=== PATIENT | male | born 1945 | race Two or more races ===

== ENCOUNTER → 2019-05-15 | Outpatient (CLI) | payer MEDICARE ==
--- NOTE | 2019-05-15 15:57 | RAD ---
Left lower extremity venous duplex study 05/15/2019 Clinical History: Lower extremity pain Technique: Using a combination of real time ultrasound imaging and color-flow and pulse Doppler imaging techniques, including spectral analysis, graded compression and augmentation, duplex evaluation of the deep venous system of the left lower extremity was performed. Multiple images were obtained. Findings: Partially occlusive thrombus is seen in the left superficial femoral vein. Occlusive thrombus is seen in the left popliteal vein. Remaining deep veins of left lower extremity appear grossly patent. Impression: Exam positive for deep venous thrombosis involving the left superficial femoral and popliteal veins as described. Findings called to the ordering physician at time of exam by the cytotechnologist/histotechnologist Electronically signed by: Dileep Gill MD (05/15/2019 3:54 PM) [id number]
== END | disposition home or self-care (01) ==
LOC: US 14:39
PROVIDERS: ATTEND Internal Medicine
DX: I82.412 Acute embolism and thrombosis of left femoral vein (principal); I82.432 Acute embolism and thrombosis of left popliteal vein
CPT/HCPCS: 93971

== ENCOUNTER → 2019-11-17 | Outpatient (CLI) | payer MEDICARE ==
--- NOTE | 2019-11-17 15:10 | RAD ---
EXAM: Left lower extremity venous Doppler. HISTORY: Left lower extremity DVT follow-up. COMPARISON: Left lower extremity venous duplex ultrasound of May 25, 2019. FINDINGS: Grayscale and Doppler analysis of the left lower extremity deep venous system was performed with graded compression and augmentation. The common femoral, greater saphenous, superficial femoral, popliteal and calf veins were assessed. Occlusive thrombus in the left popliteal vein persists as well as partially occlusive thrombus in the distal femoral vein. Partially occlusive thrombus is also identified in the posterior tibial and peroneal veins, similar to prior. There has been partial resolution in clot burden in the femoral vein, most notably in the proximal and mid portions. IMPRESSION: 1. Interval decrease in clot burden in the left lower extremity venous system with residual DVT present in the distal femoral through proximal calf veins including occlusive thrombus in the popliteal vein. Electronically signed by: Kodi Banegas MD (11/17/2019 3:08 PM) [id number]
== END | disposition home or self-care (01) ==
LOC: US 14:12
PROVIDERS: ATTEND Internal Medicine
DX: I82.432 Acute embolism and thrombosis of left popliteal vein (principal); I82.412 Acute embolism and thrombosis of left femoral vein; I82.4Z2 Acute embolism and thrombosis of unspecified deep veins of left distal lower extremity
CPT/HCPCS: 93971